=== PATIENT | female | born 1985 | race Caucasian/White ===

== ENCOUNTER 2019-07-24 13:04 | Outpatient (CLI) | payer OTHER | END 2019-07-24 13:09 | disposition home or self-care (01) | LOC: LAB 13:04 | DX: J11.1 Influenza due to unidentified influenza virus with other respiratory manifestations (principal); Z20.828 Contact with and (suspected) exposure to other viral communicable diseases; M62.838 Other muscle spasm; R06.02 Shortness of breath; R07.0 Pain in throat; R68.83 Chills (without fever) ==